=== PATIENT | female | born 1960 | race Caucasian/White ===

== ENCOUNTER → 2017-07-12 | Outpatient (CLI) | payer BC ==
[~2017-07-12] MED LIST: CELEBREX200 MG PO; CRESTOR40 MG PO; LOPRESSOR25 MG PO; TAMBOCOR100 MG PO; VENLAFAXINE H37.5 MG PO
--- NOTE | ~2017-07-12 | ESTC ---
Cardiac Perfusion Imaging Demographics Patient Name MARIELLA Mason Gender Female Patient Number [id number] Race Visit Number [id number] Ethnicity Corporate ID Room Number Accession Number [id number] Height 61 inches Date of 1960 Weight 177 pounds Interpreting CNC Date of study 07/12/2017 Physician Mihir Chavez MD Supervising /MOHIT Hamilton NM Technologist Radha Cardoso APRN Ordering Physician Mihir Chavez MD Stress commercial maintenance technician Stress ECG Reading Elizabeth Hamilton Nurse Michele Zamora Physician ILSA Ballard Procedure Procedure Type: Nuclear Stress Test:Exercise, Cardiolite Stress Test Procedure Start time: 07/12/2017 00:00 Indications: PVCs. Risk Factors The patient risk factors include:treated hypercholesterolemia and family history of premature CAD appeared at age 42. Conclusions Summary Cardiolte SPECT images demonstrate moderate to severe reversible defect involving the anterior wall. This does extend into the anteroseptal and anterolateral regions. No evidence of underlying fixed defect. TID is increased at 1.12 Lolita images demonstrate mild global hypokinesis, EF reported at 70% Stress Protocols Resting ECG Sinus Rhythm with bigeminy PVC's Resting HR:86 bpm Resting BP:139/65 mmHg Pre-stress physical exam: Patient assessed by Analia Johnson APRN prior to testing. Stress Protocol:Exercise Peak HR:164 bpm HR response: Appropriate Peak BP:164/84 mmHg BP response: Appropriate Predicted HR: 164 bpm HR/BP product:76238 % of predicted HR: 100 Max exercise: 7 METS Test duration:06:20 min Reason for termination:Target heart rate Exercise effort:Good Perceived exertion:14 ECG Findings With 2 minutes into exercise PVC's resolved. Sinus tachy monitored Arrhythmias No rhythm abnormality. Symptoms Shortness of breath Stress Interpretation The electrocardiographic portion of the stress test was positive for ischemia. Blood pressure response was normal, heart rate response was normal for exertion. The Mccann Treadmill Score was +1. This corresponds to a low risk stress test. Stress supervision and interpretation provided by Katt Johnson APRN . Imaging Results Applied corrections - Motion correction applied High risk findings Summed scores - Summed stress score: 18 - Summed rest score: 12 - Summed difference score: 6 Stress ejection Ejection fraction:70 % EDV :126 ml ESV :38 ml Stroke volume :88 ml LV mass :173 gr Imaging Protocols Rest Stress Isotope:Tc99m Sestamibi IV Isotope: Tc99m Sestamibi IV Isotope dose:14.1 mCi Isotope dose:43.7 mCi Date:07/12/2017 07:38 Date:07/12/2017 09:11 Technique: SPECT Technique: Gated Supine SPECT Supine Scan Time:45-60 minutes post Scan Time:45-60 minutes post injection injection Medical History Admission Data Admission date: 07/12/2017 Admission Time: 07:18 Hospital Status: Outpatient. Signatures dtt: Scott Ash (cardio) dtd: 07/12/17 0000 Physician Self Edit
== END | disposition disaster alternative care site (69) ==
LOC: GRAD 07:18
DX: I49.3 Ventricular premature depolarization (principal); E78.00 Pure hypercholesterolemia, unspecified; Z82.49 Family history of ischemic heart disease and other diseases of the circulatory system
CPT/HCPCS: A9500

== ENCOUNTER 2017-07-13 06:27 | Outpatient (CLI) | payer BC ==
[~2017-07-13] VITALS: Ht 170.2 cm; Wt 77.9 kg
--- NOTE | ~2017-07-13 | CATH ---
Cardiac Diagnostic Report Demographics Patient Name MARIELLA Mason Gender Female Date of 1960 Age 56 year(s) Patient Number [id number] Date of Study 07/13/2017 Visit Number [id number] Room Number [id number] Corporate ID Ht 170.2 cm Wt 77.9 kg Referring Mihir Chavez MD Primary Physician Physician Oneil Mcclellan APRN Performing Mihir Chavez MD Secondary Physician Physician Diagnostic Mihir Chavez MD Assisting Physician Physician Interventional Physician Drilling Field Professional Physician Findings and Conclusions Diagnostic Findings and Conclusion Non-obstructive CAD Normal LV function Ventricular bigeminy Diagnostic Recommendations Medical therpy Procedure Description The patient was brought to the diagnostic cardiac catheterization-EP laboratory in the fasting, non-sedated state. Informed consent was obtained in the written and verbal form after the risks and benefits were explained. The patient had no further questions and agreed to proceed. The planned puncture-incision site(s) were shaved and prepped with ChloraPrep and draped in the usual sterile manner. Conscious sedation, supplemental oxygen, and pain control medications were delivered by a registered nurse under physician guidance. Surface ECG rhythm, blood pressure measurement, and pulse oximetry were monitored throughout the procedure. Arterial access. The access site was infiltrated with lidocaine. The vessel was entered with the Seldinger technique. A sheath was advanced into the vessel and used for catheter placement. Selective left coronary angiography. A catheter was advanced into the left coronary vessel ostium under Fluoroscopic guidance. Contrast was injected by hand. Images were obtained in multiple projections. Selective right coronary angiography. A catheter was advanced into the right coronary vessel ostium under fluoroscopic guidance. Contrast was injected by hand. Images were obtained in multiple projections. Left heart catheterization with ventriculography. A catheter was advanced across the aortic valve to the left ventricle under fluoroscopic guidance. Resting hemodynamics were obtained. With the catheter at the left ventricular apex, contrast was injected. Images were obtained in ARMENIAN projections. Post-ventriculography LV pressure was obtained. The catheter was gradually withdrawn into the aorta with continuous pressure recording. Arterial artery hemostasis was achieved. The patient was transferred to a regular nursing floor via cart accompanied by a nurse. The patient left the laboratory in stable condition. Diagnostic Cath Status: Elective Procedure Procedure Type Diagnostic procedure:Ventriculogram:, Left, Angiography:, Coronary Angios w/[facility] Indications: Bradycardia and Abnormal nuclear perfusion test. The procedure was explained in detail to the patient. Risks, complications and alternative treatments were reviewed. Written consent was obtained. Medications Reviewed with Patient prior to Procedure. Angiographic Findings Dominance: Right Cardiac Arteries and Lesion Findings LMCA: Normal (0% Stenosis).Medium LAD: Normal (0% Stenosis).Medium; Diag 1 is small, normal RCA: Normal (0% Stenosis).Large, dominant; PL medium, normal; PDA medium, normal Procedure Data Procedure Date Date: 07/13/2017Start: 09:13 AMEnd: 09:44 AM Entry Locations - Retrograde Percutaneous access was performed through the Right Femoral artery (Primary location). A 6 Fr sheath was inserted. Hemostasis was successfully obtained using Angio-Seal STS PLUS ([facility]). Procedure Medications Order and Administration + + +-------+------+ !Time !Medication !Dosage !Route ! + + +-------+------+ !07/13/2017 09:10 AM !Versed !1 mg !I.V. ! + + +-------+------+ !07/13/2017 09:11 AM !Fentanyl !50 mcg !I.V. ! + + +-------+------+ Devices Used - A6 Fr. BS JL 4 Diag. Catheterwas used for:Left coronary angiography. - A6 Fr. BS JR 4 Diag. Catheterwas used for:Right coronary angiography. - A6 Fr. BS Angled Pigtail Diag. Catheterwas used for:Left ventriculography. Contrast Material - Isovue [id number] ml Fluoroscopy Time: Diagnostic: 2:30 minutes. Total: 2:30 minutes. Fluoroscopy Dose: Diagnostic: 561 mGy. Total: 561 mGy. Estimated Blood Loss: 15 ml. Medical History Allergies - No known allergies. Risk Factors The patient risk factors include:family history of premature CAD, last creatinine: 1.1 mg/dl, creatinine clearance: 70.23 ml/min and dyslipidemia. Admission Data Admission Date: 07/13/2017 Admission Time: 06:27 AM Admit Source: Other Insurance Payors: Private health insurance. Admission Medications + +------+------+ + + + + !Medication !Dosage!Times !Last !Last !Administered !Comments ! ! ! !Per !Delivery !Delivery ! ! ! ! ! !Day !Date !Time ! ! ! + +------+------+ + + + + !Aspirin ! ! ! ! ! ! ! !(any) ! ! ! ! ! ! ! + +------+------+ + + + + !Beta ! ! ! ! ! ! ! !Gerson ! ! ! ! ! ! ! !(any) ! ! ! ! ! ! ! + +------+------+ + + + + !Statin ! ! ! ! ! ! ! !(any) ! ! ! ! ! ! ! + +------+------+ + + + + Clinical Evaluation Leading to Procedure - The patient's CAD presentation was assessed as: Symptom unlikely to be ischemic. - There were no anginal symptoms. VA LV function assessed . Ejection Fraction - 07/12/2017 - Method: Radionucleotide. EF%: 70. Hemodynamics Condition: Rest O2 Consumption: Estimated: 200.98Heart Rate: 96 bpm Pressures (mmHg) +-----+ + !Site !Pressure ! +-----+ + !AO !135/56 (89) ! +-----+ + !LV !133/23 ,10 ! +-----+ + !LV !86/0 ,2 ! +-----+ + !LV !91/0 ,7 ! +-----+ + !AO !128/53 (92) ! +-----+ + Shunts Oxygen Values O2 Capacity 217.6 O2 Consumption 200.98 Discharge Data Discharge Date: 07/13/2017 Hospital Status: Outpatient Signatures dtt: Scott Ash (cardio) dtd: 07/13/17 0913 Physician Self Edit
[~2017-07-13 06:27] MED LIST changes: -TAMBOCOR100 MG PO
[2017-07-13 09:52] LABS: MAGNESIUM 2.2 mg/dL (1.8-2.6); POTASSIUM 3.7 mMol/L (3.7-5.1)
[2017-07-13] MEDS ORDERED: TAMBOCOR100 MG PO (12:19)
== END 2017-07-13 13:00 | disposition disaster alternative care site (69) ==
LOC: GPCU 06:27 → GPOC 06:27
PROVIDERS: Internal Medicine Interventional Cardiology
PROC: 4A023N7 Measurement of Cardiac Sampling and Pressure, Left Heart, Percutaneous Approach (ICD-10-PCS; principal; 2017-07-13)
PROC: B216YZZ Fluoroscopy of Right and Left Heart using Other Contrast (ICD-10-PCS; 2017-07-13)
DX: I25.10 Atherosclerotic heart disease of native coronary artery without angina pectoris (principal)
CPT/HCPCS: C1760; J1644; J2001; J2250; J3010; J7030